=== PATIENT | female | born 1990 | race African-American/Black ===

== ENCOUNTER 2016-04-12 19:31 | Emergency (ER) | payer BC ==
[2016-04-12 19:45] VITALS: BP 146/82; PULSE 78; TEMP 97.4; BMI 32.7
--- NOTE | 2016-04-12 19:58 | PDOC ---
[id number] 25 year old female with no significant medical hx who is presenting to the ED for anxiety after an emotional episode at today home. The patient reports shes been very overwhelmed and stressed out with her job; today the patients father said something which upset her and she states that she exploded on him. She had an episode of vomiting as well. The patient also complains if difficulty sleeping the past few days. The patient was brought to the ED by mother because she was screaming, locked herself in the bathroom, and took a few sleeping pills. 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 The patient lives at home with her father. She reports that she needs places to work around the house but often fights with him about cleanliness. <Lou Trejo - Last Filed: 04/12/16 21:51> <Maribel Joseph - Last Filed: 04/14/16 18:44> - General Chief Complaint: Psychiatric Stated Complaint: PSYCHIATRIC Past History <Lou Trejo - Last Filed: 04/12/16 21:51> - Psycho/Social/Smoking Cessation Hx Suicidal Ideation: No Smoking History: Never smoked Number of Cigarettes Smoked Daily: 0 Information on smoking cessation initiated: No Hx Alcohol Use: No Drug/Substance Use Hx: No <Maribel Joseph - Last Filed: 04/14/16 18:44> - Past Medical History Allergies/Adverse Reactions: Allergies Allergy/AdvReac Type Severity Reaction Status Date / Time No Known Allergies Allergy Verified 04/12/16 19:35 Home Medications: Ambulatory Orders Alprazolam [Xanax] 0.5 mg PO DAILY PRN #4 tablet MDD 1 04/12/16 Review of Systems - Review of Systems Comments:: 04/12/16 21:54 CONSTITUTIONAL: Absent: fever, chills, diaphoresis, generalized weakness, malaise, loss of appetite HEENT: Absent: rhinorrhea, nasal congestion, throat pain, throat swelling, difficulty swallowing, mouth swelling, ear pain, eye pain, visual changes CARDIOVASCULAR: Absent: chest pain, syncope, palpitations, irregular heart rate, lightheadedness , peripheral edema RESPIRATORY: Absent: cough, shortness of breath, dyspnea with exertion, orthopnea, wheezing, stridor, hemoptysis GASTROINTESTINAL: Present: vomiting Absent: abdominal pain, abdominal distension, nausea, diarrhea, constipation, melena, hematochezia GENITOURINARY: Absent: dysuria, frequency, urgency, hesitancy, hematuria, flank pain, genital pain MUSCULOSKELETAL: Absent: myalgia, arthralgia, joint swelling SKIN: Absent: rash, itching, pallor HEMATOLOGIC/IMMUNOLOGIC: Absent: easy bleeding, easy bruising, lymphadenopathy, frequent infections ENDOCRINE: Absent: unexplained weight gain, unexplained weight loss, heat intolerance, cold intolerance NEUROLOGIC: Absent: headache, focal weakness or paresthesia, dizziness, unsteady gait, seizure, mental status changes, bladder or bowel incontinence. PSYCHIATRIC: Present: anxiety, difficulty sleeping Absent: depression, suicidal or homicidal ideation, hallucinations <Lou Trejo - Last Filed: 04/12/16 21:51> *Physical Exam - Vital Signs Last Vital Signs Temp Pulse Resp BP Pulse Ox 97.4 F L 78 14 146/82 99 04/12/16 19:43 04/12/16 19:43 04/12/16 19:43 04/12/16 19:43 04/12/16 19:43 - Physical Exam Comments: 04/12/16 21:57 GENERAL: Well developed, well nourished. Awake and alert. No acute distress. HEENT: Normocephalic, atraumatic. PERRLA, EOMI. No conjunctival pallor. Sclera are non- icteric. Moist mucous membranes. Oropharynx is clear. NECK: Supple. Full ROM. No JVD. Carotid pulses 2+ and symmetric, without bruits. No thyromegaly. No lymphadenopathy. CARDIOVASCULAR: Regular rate and rhythm. No murmurs, rubs, or gallops. Distal pulses are 2+ and symmetric. PULMONARY: No evidence of respiratory distress. Lungs clear to auscultation bilaterally. No wheezing, rales or rhonchi. ABDOMINAL: Soft. Non-tender. Non-distended. No rebound or guarding. No organomegaly. Normoactive bowel sounds. MUSCULOSKELETAL: Normal range of motion at all joints. No bony deformities or tenderness. No CVA tenderness. EXTREMITIES: No cyanosis. No clubbing. No edema. No calf tenderness. SKIN: Warm and dry. Normal capillary refill. No rashes. No jaundice. NEUROLOGICAL: Alert, awake, appropriate. Cranial nerves 2-12 intact. Normal speech. Gait is normal without ataxia. PSYCHIATRIC: Cooperative. Good eye contact. Appropriate mood and affect. <Lou Trejo - Last Filed: 04/12/16 21:51> - Vital Signs Last Vital Signs Temp Pulse Resp BP Pulse Ox 97.4 F L 78 14 146/82 99 04/12/16 19:43 04/12/16 19:43 04/12/16 19:43 04/12/16 19:43 04/12/16 19:43 <Maribel Joseph - Last Filed: 04/14/16 18:44> ED Treatment Course - Medications Given in the ED: ED Medications Discontinued Medications Generic Name Dose Route Start Last Admin Trade Name Freq PRN Reason Stop Dose Admin Alprazolam 0.5 mg 04/12/16 20:45 04/12/16 21:05 Xanax - PO 04/12/16 20:46 0.5 mg ONCE ONE Administration <Lou Trejo - Last Filed: 04/12/16 21:51> Medical Decision Making - Medical Decision Making 04/14/16 18:43 25-year-old female who is 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 He felt that she was not keeping the place tidy and she states that she needs a place put her paperwork down. She is beginning to feel overwhelmed and really does not like her new job. She feels under a lot of pressure. Her family became concerned because she's never really had an outburst like this today. She has no suicidal , homicidal ideology. She says that she dreads going to her job and is overwhelmed by the extra out of school work she has to do. Impression anxiety, situational <Maribel Joseph - Last Filed: 04/14/16 18:44> *DC/Admit/Observation/Transfer - Attestations Scribe Attestion: 04/12/16 21:58 Documentation prepared by Lou Trejo, acting as certified medical coder for Maribel Joseph MD. <Lou Trejo - Last Filed: 04/12/16 21:51> <Maribel Joseph - Last Filed: 04/14/16 18:44> Diagnosis at time of Disposition: Situational anxiety - Discharge Dispostion Disposition: HOME Condition at time of disposition: Stable - Prescriptions Prescriptions: Alprazolam [Xanax] 0.5 mg PO DAILY PRN #4 tablet MDD 1 PRN Reason: Anxiety - Referrals Referrals: Angela Brown MD [Staff Physician] - - Patient Instructions Printed Discharge Instructions: DI for Anxiety -- Adult Additional Instructions: please seek help in managing your anxiety You may cloth picker your medication at [facility] pharmacy - Post Discharge Activity Work/School Note: Back to Work
[2016-04-12] MEDS ORDERED: ALPRAZolam 0.25 MG TABLET PO ONE (20:45)
[2016-04-12] MEDS ORDERED: ALPRAZolam 0.25 MG TABLET ONE (21:02)
== END 2016-04-12 21:05 | disposition home or self-care (01) ==
LOC: JER 19:31
DX: F41.8 Other specified anxiety disorders (principal)
CPT/HCPCS: 99282-25